=== PATIENT | female | born 1990 | race Caucasian/White ===

== ENCOUNTER 2019-08-13 07:17 | Inpatient (IN) | payer OTHER ==
[2019-08-13] MEDS ORDERED: Lidocaine 2% MPF 10 ML AMP (For Epidural Use) ONE (15:00)
--- NOTE | 2019-08-13 23:07 | PDOC.FPROB ---
FMR OB H&P: HPI - History of Present Illness Chief Complaint: mIOL Indentification: 28yo at 39.2 wga by LMP c/w 11.2 wk sono History of Present Illness: Pt here for elective IOL. Woody meier ctx, not painful or pressure. No VB, + FM, no LOF or leakage. Some discharge but normal and consistent throughout . Primary Care Physician: SHERRI: Leonardo FMR OB H&P: Current - Care : 1 Para: 0 Gestational age: 39.2 Due date: 08/18/2019 Dating Criteria: 1T sono, LMP Course/Complications: 1. Polyhydramnios on 37 wk sono 2. Placental calcifications and lacunae indicative of placental insufficiency 3. Maternal hx of VSD repair at 16 months of age 4. Maternal hx of LIZA I in 2013 - OB Labs Blood type: B RH: positive Antibody Screen: negative HIV: negative RPR: negative HepBsAg: negative Rubella: immune Gonorrhea: negative Chlamydia: negative Pap Smear: NILM 1 hour gtt: passed A1c: 4.9 GBS: negative - First Trimester Ultrasound First trimester: c/w LMP at 11.2 wga - Anatomy Survey Anatomy survey: wnl - Additional Ultrasound Additional: 3T sono: polyhydramnios FMR OB H&P: History - Past Medical History PMH: No medical problems - OB History OB History: Primip - [employer] History [employer] History: Hx of LIZA I: 2013 Normal paps since then. - Surgical History Sx History: VSD repair at 16 month of age No other surgeries - Social History Social History: Denies smoking, drinking alcohol, drugs. - Family History Family History: Parents w/ HTN. FMR OB H&P: Medications - Current Allergies/Adverse Reactions: Allergies Allergy/AdvReac Type Severity Reaction Status Date / Time No Allergy Information Allergy Unverified 08/13/19 23:41 Available FMR OB H&P: ROS - Review of Systems General: denies: fever/chills, weight/appetite/sleep changes Eyes: denies: vision changes ENT: denies: nasal congestion, sore throat Cardiovascular: denies: chest pain, edema Respiratory: denies: cough Gastrointestinal: denies: abdominal pain, diarrhea, constipation Genitourinary (Female): denies: dysuria, hematuria, vaginal discharge, vaginal pain, vaginal bleeding, contractions, vaginal pressure Musculoskeletal: denies: pain Neurologic: denies: syncope, weakness Integumentary: denies: itching, rash Hematologic/Lymphatic: denies: prolonged or excessive bleeding Psychological: denies: depression, anxiety FMR OB H&P: Vital Signs - Maternal Vital signs: BP: 146/84 HR: 60 Afebrile - Heart Tones Baseline: 130 (reactive) Variability: moderate Acceleration: present Deceleration: absent [place] contractions every: none FMR OB H&P: Physical Exam - Physical Exam General: NAD, awake, alert and oriented HEENT: normocephalic and atraumatic, no scleral icterus, grossly normal hearing , good dention Neck: trachea midline Heart: RRR, normal S1/S2, no murmurs/rubs/gallops, no edema General: CTAB, no respiratory distress, good air movement Abdomen: soft, gravid, non-tender, bowel sound present Musculoskeletal: normal gait and station, pulses present Neurological: no focal deficit Skin: no rash, no jaundice Lymphatic: no unusual bruising or bleeding, no purpura, no petechia Psychiatric: intact recent and remote memory, normal mood and affect - Pelvic Exam Vulva: normal hair distribution, no masses, no lesions, no discharge, no blood SVE: 1/40/-2, medium, anterior De La Vega score: 6 Membranes: intact Presentation: cephalic, confirmed by sono Estimated Weight: 6 lbs FMR OB H&P: A/P - Problem List (1) Term Current Visit: Yes Status: Acute Code(s): Z34.90 - ENCNTR FOR SUPRVSN OF NORMAL , UNSP, UNSP TRIMESTER Disposition: Admit to L&D for IOL. Discussion: Date/Time: 08/13/19 2305 28 yo here for : Elective IOL: - Patient's cervix has de la vega score 6 - will place cytotec and recheck in 4 hours - will reassess at that time if another cytotec is needed - continuous EFM and tocometry - expectant mgmt This H&P was discussed with Dr. Mcneil and Dr. Bridges, who agree with the above documentation and plan. Signature: Pamela Mclean MD PGY1 Addendum - Attending - Attending Attestation Date/Time: 08/14/19 0004 I personally evaluated the patient and discussed the management with Dr. Mclean I agree with the History, Examination, Assessment and Plan documented above with any addition or exceptions noted below - 28 yo @ 39.2 weeks here for induction. Denies any ctx, LOF, VB (+) FM. GBS negative; Afebrile BP 146/84 SVE /-2/ant/med per resident. FHT Category 1. Centuria- occ ctx A/P: 1) IUP @ 39.2 weeks - will start on cytotec and recheck in 4 hours. 2) Elevated BP - will continue to monitor; if persistent, will check Pre-E labs.
[2019-08-13] MEDS ORDERED: Ondansetron PF 4 MG/2 ML Vial IVP PRN (23:33)
[2019-08-13] MEDS ORDERED: Ibuprofen 800 MG TAB PO PRN (23:33)
[2019-08-13] MEDS ORDERED: Promethazine HCl 25 MG/ML VIAL IM PRN (23:33)
[2019-08-13] MEDS ORDERED: NS / Oxytocin 40 units/1000ml 1,000 ML IV PRN (23:33)
[2019-08-13] MEDS ORDERED: Lidocaine 1% (PF) 30 ML VIAL SC PRN (23:33)
[2019-08-13] MEDS ORDERED: hydrALAZINE 20 MG/ML VIAL SLOW IVP PRN (23:33)
[2019-08-14] MEDS: Misoprostol 100 MCG TAB VAG SCH ×2 (00:05→20:54)
[2019-08-14 00:13] LABS: Hemoglobin 14.4 g/dL (12.0-16.0); Mean Corpuscular HGB CONC 35.1 g/dL (32.0-36.0); Mean Corpuscular Hemoglobin 31.4 pg (27.0-31.0); Mean Corpuscular Volume 89.5 fL (78.0-98.0); Mean Platelet Volume 9.8 fL (7.4-10.4); Platelet Count 210 thou/uL (130-400); RBC Distribution Width 12.6 % (11.5-14.5); Red Blood Cell (RBC) Count 4.57 mill/uL (4.20-5.40); White Blood Cell (WBC) Count 13.7 thou/uL (4.8-10.8)
[2019-08-14 00:52] LABS: HBSAg Index 0.13 S/CO (0-0.99); Hep B Surf Ag Non-Reactive S/CO (NonReactive); Syphilis Antibody Nonreactive (Nonreactive); Syphilis Antibody Index 0.04 S/CO (<1.00 Non-Reactive)
[2019-08-14 02:12] VITALS: BMI 28.3
--- NOTE | 2019-08-14 04:21 | PDOC.LDPN ---
Labor & Delivery Progress Note - Subjective Subjective: comfortable - Objective Vital signs reviewed and normal: yes (BP improved) General: NAD, resting Dilation: 3 Effacement: 50% Station: -2 FHT: category 1 [place] contractions every: 1-4 min - Assessment (1) Term Code(s): Z34.90 - ENCNTR FOR SUPRVSN OF NORMAL , UNSP, UNSP TRIMESTER Current Visit: Yes Status: Acute Plan: continue plan of care -: -continue expectant mgmt -pitocin ordered for augmentation - de la vega of 8.
[2019-08-14] MEDS ORDERED: NS w/ Oxytocin 10 units 500 ML IV SCH (04:30)
[2019-08-14] MEDS: Lactated Ringer's 1,000 ML IV SCH ×3 (05:34→10:47)
--- NOTE | 2019-08-14 07:15 | PDOC.LDPN ---
Labor & Delivery Progress Note - Subjective Subjective: comfortable - Objective Vital signs reviewed and normal: yes General: NAD SVE: 4/75%/-2 BBOW FHT: category 1 [place] contractions every: q2-3 min - Assessment (1) Term Code(s): Z34.90 - ENCNTR FOR SUPRVSN OF NORMAL , UNSP, UNSP TRIMESTER Current Visit: Yes Status: Acute -: A/P: 1) IUP@39.2 weeks here for induction- progressing well. Continue pitocin. Category 1 FHTs.
[2019-08-14] MEDS ORDERED: Fentanyl 4 mcg/Bup 0.1% Cadd 100 ML ONE (10:22)
[2019-08-14] MEDS ORDERED: Lactated Ringer's 500 ML IV PRN (11:01)
[2019-08-14] MEDS ORDERED: diphenhydrAMINE 50 MG/ML VIAL IVP PRN (11:01)
[2019-08-14] MEDS ORDERED: Ondansetron PF 4 MG/2 ML Vial IVP PRN ×2 (11:01→16:51)
[2019-08-14] MEDS ORDERED: ePHEDrine/0.9% NaCl/PF SYRINGE 50 mg/10 ml SLOW IVP PRN (11:01)
[2019-08-14] MEDS ORDERED: Acetaminophen 325 MG TAB PO PRN (11:01)
[2019-08-14] MEDS ORDERED: Naloxone HCl 0.4 mg/ml Vial IVP PRN ×2 (11:01)
[2019-08-14] MEDS ORDERED: Promethazine HCl 25 MG/ML VIAL IM PRN ×2 (11:01→16:51)
[2019-08-14] MEDS ORDERED: Fentanyl 4 mcg/Bupivacaine 0.1% Cassette 100 ML EPIDURAL SCH (11:15)
[2019-08-14] MEDS ORDERED: Communication Order-Pharmacy FS SCH (11:15)
--- NOTE | 2019-08-14 16:02 | PDOC.OP ---
Operative Note - Operative Note Operative Note: Delivering Physician: Homa Patterson MD PGY-2 Attending: Favian Espana MD Procedure: Spontaneous Vaginal Delivery Anesthesia: epidural QBL: 187ml Pre-op Diagnosis: 1. Term intrauterine , elective IOL 2. Grade 3 placenta Post-op Diagnosis: 1. Term intrauterine , delivered 2. Grade 3 placenta Indications: A 28y/o female presents for elective induction of labor Delivery Note: This is 28yo F @39.3wks who delivered a viable F infant at 1445 on 08/14/19. Following an uneventful antepartum course, a vigorous female was delivered over an intact perineum in the occipitoanterior position. Anterior Shoulder and then remainder of the body delivered. Nuchal cord x1. The head was held down and mouth and nares were bulb suctioned. Cord clamped after delayed cord clamping and cut and cord blood collected. Placenta delivered intact with a 3 vessel cord noted. Fundal massage was performed and the fundus was firm. The cervix and vagina were inspected and found to have bilateral periurethral lacerations that were hemostatic. Small first degree perineal Laceration noted and repaired with figure of eight with good approximation and hemostasis. went to nursery in good condition for routine care. Apgars were 9/9 at 1 & 5 minutes, respectively. Patient tolerated delivery well and went to after routine recovery/care. Addendum - Attending - Attending Attestation Date/Time: 08/15/19 1120 I was present for the entire delivery.
[2019-08-14] MEDS ORDERED: Bisacodyl 10 MG SUPP PR PRN (16:51)
[2019-08-14] MEDS ORDERED: hydrALAZINE 20 MG/ML VIAL SLOW IVP PRN (16:51)
[2019-08-14] MEDS ORDERED: Preparation H Ointment 28 GM TUBE PR PRN (16:51)
[2019-08-14] MEDS ORDERED: Adacel (T-DAP) 0.5 ML SYRINGE IM ONE (16:51)
[2019-08-14] MEDS ORDERED: NS / Oxytocin 40 units/1000ml 1,000 ML IV SCH (16:51)
[2019-08-14] MEDS ORDERED: Milk Of Magnesia 30 ML UDCUP PO PRN (16:51)
[2019-08-14] MEDS ORDERED: Lanolin Ointment 7 GM TUBE TOP PRN (16:51)
[2019-08-14] MEDS: Ferrous Sulfate 325 MG TAB PO SCH (19:33)
[2019-08-14] MEDS: Docusate Calcium (SURFAK) 240 MG CAP PO SCH (21:19)
[2019-08-14] MEDS: Ibuprofen 800 MG TAB PO SCH (21:19)
[2019-08-15] MEDS: Ibuprofen 800 MG TAB PO SCH ×3 (05:21→21:11)
--- NOTE | 2019-08-15 07:28 | PDOC.PP ---
Post Progress Note Post Day #: 1 Subjective: Feeling well this morning. Slept well. Pain well controlled with medications. Minimal lochia. Now ambulating. Would like to take a shower today. Urinary catheter has been removed. Denies GARCIA. PO intake tolerated: yes Flatus: no Ambulation: yes Vital Signs (12 hours) Temp Pulse Resp BP Pulse Ox 08/15/19 05:20 98.8 F 66 16 106/52 L 08/14/19 23:30 97.8 F 61 16 97/50 L 08/14/19 19:42 98.8 F 63 12 120/56 L 97 Weight Weight 74.843 kg - Physical Examination General: NAD Cardiovascular: no m/r/g, RRR Respiratory: clear to auscultation bilaterally, non-labored breathing Abdominal: + bowel sounds, lochia, appropriately TTP Fundus firm & at: below umbilicus Neurological: no gross focal deficits Psychiatric: A&Ox3, normal affect Result Diagrams: 08/13/19 23:56 Additional Labs: Post Labs Blood Type B POSITIVE 08/14/19 00:54 Hep Bs Antigen Non-Reactive S/CO (NonReactive) 08/13/19 23:56 (1) normal course Code(s): Z39.2 - ENCOUNTER FOR ROUTINE FOLLOW-UP Status: Acute - Assessment/Plan 28yo now delivered TAGA female on 08/14/19 at 39.3wks by LMP c/w 11.2wk US Term sIUP, delivered - Routine PP care - Likely discharge home tomorrow Maternal hx of LIZA I in 2013 - Due for PAP 2020
[2019-08-15] MEDS: Ferrous Sulfate 325 MG TAB PO SCH ×2 (09:15→21:47)
[2019-08-15] MEDS: Docusate Calcium (SURFAK) 240 MG CAP PO SCH ×2 (09:15→21:11)
[2019-08-15] MEDS: Prenatal Vitamin 1 TAB PO SCH (09:15)
[2019-08-16] MEDS: Ibuprofen 800 MG TAB PO SCH (05:47)
--- NOTE | 2019-08-16 08:11 | PDOC.PP ---
Post Progress Note Post Day #: 2 Subjective: Feeling well. Pain well controlled. Bottle feeding. Ambulating. Lochia less than period. Feels ready to discharge today. PO intake tolerated: yes Flatus: yes Ambulation: yes Vital Signs (12 hours) Temp Pulse Resp BP 08/16/19 05:45 97.6 F 60 18 108/64 Weight Weight 74.843 kg - Physical Examination General: NAD Cardiovascular: no m/r/g, RRR Respiratory: clear to auscultation bilaterally, non-labored breathing Abdominal: + bowel sounds, lochia, appropriately TTP Neurological: no gross focal deficits Psychiatric: A&Ox3, normal affect Result Diagrams: 08/13/19 23:56 Additional Labs: Post Labs Blood Type B POSITIVE 08/14/19 00:54 Hep Bs Antigen Non-Reactive S/CO (NonReactive) 08/13/19 23:56 (1) normal course Code(s): Z39.2 - ENCOUNTER FOR ROUTINE FOLLOW-UP Status: Acute - Assessment/Plan 28yo now delivered TAGA female on 08/14/19 at 39.3wks by LMP c/w 11.2wk US Term sIUP, delivered - Routine PP care - D/c home today Maternal hx of LIZA I in 2014 - Due for PAP 2020
[2019-08-16 08:35] VITALS: BP 117/67; TEMP 98.4
[2019-08-16] MEDS: Ferrous Sulfate 325 MG TAB PO SCH (09:10)
[2019-08-16] MEDS: Docusate Calcium (SURFAK) 240 MG CAP PO SCH (09:10)
[2019-08-16] MEDS: Prenatal Vitamin 1 TAB PO SCH (09:10)
== END 2019-08-16 11:54 | disposition home or self-care (01) | DRG 807 ==
LOC: UNDOADMIN 19:32 → L&D 19:32 → 3SW 08-14 17:45 → EDSTATUS 08-19 07:17
PROVIDERS: ADMIT Family Medicine; ATTEND Family Medicine
PROC: 10E0XZZ Delivery of Products of Conception, External Approach (ICD-10-PCS; principal; 2019-08-14)
PROC: 0HQ9XZZ Repair Perineum Skin, External Approach (ICD-10-PCS; 2019-08-14)
PROC: 3E0P7VZ Introduction of Hormone into Female Reproductive, Via Natural or Artificial Opening (ICD-10-PCS; 2019-08-14)
PROC: 3E033VJ Introduction of Other Hormone into Peripheral Vein, Percutaneous Approach (ICD-10-PCS; 2019-08-14)
DX: O36.5130 Maternal care for known or suspected placental insufficiency, third trimester, not applicable or unspecified (principal); Z37.0 Single live birth; O40.3XX0 Polyhydramnios, third trimester, not applicable or unspecified; O71.82 Other specified trauma to perineum and vulva; O69.81X0 Labor and delivery complicated by cord around neck, without compression, not applicable or unspecified; O70.0 First degree perineal laceration during delivery; Z3A.39 39 weeks gestation of pregnancy; O75.89 Other specified complications of labor and delivery; R03.0 Elevated blood-pressure reading, without diagnosis of hypertension
CPT/HCPCS: 36415; 51702; 85027; 86780; 86850; 86900; 86901; 87340; 90715; J2001; J2590